=== PATIENT | male | born 1940 | race Caucasian/White ===

== ENCOUNTER 2016-10-06 16:46 | Emergency (ER) | payer MEDICARE ==
[~2016-10-06] VITALS: Wt 99.8 kg
[~2016-10-06 16:46] MED LIST: ASPIRIN CHEWABL81 MG PO; CLONIDINE0.3 MG PO; DOCUSATE SODIU100 M2 PO; HYDROCHLOROTHIA25 M1 PO; LANTUS100 U/ML SC; LISINOPRIL40 MG PO; LUBRICANT EYE D15 ML OP; METFORMIN HCL500 MG PO; METHADONE5 MG PO; NEURONTIN300 MG PO; NORVASC10 MG PO; OMEPRAZOLE MAGN20 MG PO; VICODIN 5/500 505 MG PO; [UNRECOGNIZED DRUG - CODE] IM
[2016-10-06 17:12] LABS: BASO % 0.4 % (0.0-1.0); EOS # 0.2 10*3/uL (0.0-0.4); EOS % 2.3 % (1.0-4.0); HEMATOCRIT 37.9 % (42.0-52.0); HEMOGLOBIN 11.4 g/dl (14.0-18.0); IG # 0.1 10*3/uL (0.0-0.1); LYMPH # 1.9 10*3/uL (1.3-4.4); LYMPH % 20.7 % (27.0-41.0); MEAN CELL VOLUME 78.1 fl (80.0-94.0); MEAN CORPUSCULAR HGB 23.5 pg (27.0-31.0); MEAN CORPUSCULAR HGB CONC 30.1 g/dl (33.0-37.0); MEAN PLATELET VOLUME 12.2 fl (9.6-12.3); MONO # 0.6 10*3/uL (0.1-1.0); MONO % 6.9 % (3.0-9.0); NEUT # 6.2 10*3/uL (2.3-7.9); PLATELET COUNT AUTOMATED 151 10*3/uL (130-400); RED BLOOD COUNT 4.85 10*6/uL (4.50-5.90); RED CELL DISTRI WIDTH 19.9 % (0-14.5)
[2016-10-06 17:19] LABS: PROTHROMBIN TIME 11.1 SECONDS (9.0-12.4)
[2016-10-06 17:27] LABS: ALBUMIN 3.8 gm/dl (3.1-4.5); ALKALINE PHOSPHATASE 141 U/L (45-117); BILIRUBIN, TOTAL 0.4 mg/dl (0.2-1.0); BUN 14 mg/dl (7-24); CARBON DIOXIDE 29 mmol/L (21-32); CHLORIDE 105 mmol/L (98-107); EST GLOM FILT AFRICAN AMERICAN > 60 ml/min; GLUCOSE 152 mg/dL (65-99); POTASSIUM 3.7 mmol/L (3.5-5.1); SGOT/AST 21 IU/L (3-35); SGPT/ALT 21 U/L (12-78); SODIUM 140 mmol/L (136-145)
[2016-10-06 17:29] LABS: TROPONIN I < 0.015 ng/ml (<0.045)
[2016-10-06 18:21] LABS: BILIRUBIN NEGATIVE (NEGATIVE); BLOOD NEGATIVE (NEGATIVE); CLARITY SL CLOUDY (CLEAR); COLOR YELLOW (YELLOW); GLUCOSE NEGATIVE (NEGATIVE); KETONE TRACE (NEGATIVE); LEUKO ESTERASE NEGATIVE (NEGATIVE); NITRITE NEGATIVE (NEGATIVE); PROTEIN TRACE (NEGATIVE); SPECIFIC GRAVITY 1.025 (1.005-1.030); UROBILINOGEN 0.2 E.U./dl (0.2-1.0)
[2016-10-06 18:29] LABS: BACTERIA TRACE; URINE REFLEX COMMENT NO (NO); WBC 0-2 wbc/hpf (0-5)
== END 2016-10-06 19:16 | disposition home or self-care (01) ==
LOC: ED 16:46
PROVIDERS: Nurse Practitioner Family
DX: S70.01XA Contusion of right hip, initial encounter (principal); F17.200 Nicotine dependence, unspecified, uncomplicated; Z90.49 Acquired absence of other specified parts of digestive tract; Z79.4 Long term (current) use of insulin; Z79.82 Long term (current) use of aspirin; W22.8XXA Striking against or struck by other objects, initial encounter; Y93.89 Activity, other specified; Y92.9 Unspecified place or not applicable; Y99.9 Unspecified external cause status

== ENCOUNTER 2017-07-14 22:58 | Emergency (ER) | payer MEDICARE ==
[~2017-07-14] VITALS: Ht 180.3 cm; Wt 102.5 kg
--- NOTE | ~2017-07-14 | EKG ---
[place], [place] ELECTROCARDIOGRAM REPORT NAME: ULISES NOBLE UNIT #: [id number] ROOM: DOCTOR: ANALY DUMONT MD BIRTHDATE: [birth year] DOS: 07/14/2017 TIME: 2304 hours. Normal sinus rhythm at 99 beats per minute. Complete right bundle branch block. Left anterior hemiblock. An abnormal ECG. No previous tracing is available for comparison. ANALY DUMONT MD CM:EKGRPT:ELECTROCARDIOGRAM REPORT [id number] 2148 ANALY DUMONT MD
[~2017-07-14 22:58] MED LIST changes: +LANTUS SOL100 UNIT/1 SQ; -LANTUS100 U/ML SC
[2017-07-14 23:26] LABS: BASO # 0.1 10*3/uL (0.0-0.1); BASO % 0.8 % (0.0-1.0); EOS # 0.3 10*3/uL (0.0-0.4); EOS % 3.1 % (1.0-4.0); HEMATOCRIT 43.1 % (42.0-52.0); HEMOGLOBIN 13.5 g/dl (14.0-18.0); LYMPH # 2.4 10*3/uL (1.3-4.4); LYMPH % 29.1 % (27.0-41.0); MEAN CELL VOLUME 83.9 fl (80.0-94.0); MEAN CORPUSCULAR HGB 26.3 pg (27.0-31.0); MEAN CORPUSCULAR HGB CONC 31.3 g/dl (33.0-37.0); MEAN PLATELET VOLUME 12.4 fl (9.6-12.3); MONO # 0.7 10*3/uL (0.1-1.0); MONO % 7.9 % (3.0-9.0); NEUT # 4.9 10*3/uL (2.3-7.9); NEUT % 58.9 % (47.0-73.0); PLATELET COUNT AUTOMATED 156 10*3/uL (130-400); RED BLOOD COUNT 5.14 10*6/uL (4.50-5.90); RED CELL DISTRI WIDTH 14.1 % (0-14.5); WHITE BLOOD COUNT 8.4 10*3/uL (4.8-10.8)
[2017-07-14 23:37] LABS: ACT PARTIAL THROMBO TIME 24.3 SECONDS (20.8-31.5)
[2017-07-14 23:40] LABS: ALBUMIN 4.4 gm/dl (3.1-4.5); ALKALINE PHOSPHATASE 202 U/L (45-117); BUN 18 mg/dl (7-24); CHLORIDE 101 mmol/L (98-107); CREATININE 1.01 mg/dL (0.70-1.30); POTASSIUM 4.1 mmol/L (3.5-5.1); SGOT/AST 17 IU/L (3-35); SGPT/ALT 25 U/L (12-78); SODIUM 137 mmol/L (136-145); TOTAL PROTEIN 8.9 gm/dL (6.4-8.2)
== END 2017-07-15 01:10 | disposition home or self-care (01) ==
LOC: ED 22:58
PROVIDERS: Student in an Organized Health Care Education/Training Program
DX: I10 Essential (primary) hypertension (principal); F17.200 Nicotine dependence, unspecified, uncomplicated; E11.9 Type 2 diabetes mellitus without complications; Z79.899 Other long term (current) drug therapy; Z79.82 Long term (current) use of aspirin; Z79.4 Long term (current) use of insulin; Z79.84 Long term (current) use of oral hypoglycemic drugs; Z90.49 Acquired absence of other specified parts of digestive tract

== ENCOUNTER → 2017-09-12 | Outpatient (CLI) | payer MEDICARE | END | disposition home or self-care (01) | LOC: ORTHO 00:35 | DX: M25.512 Pain in left shoulder (principal) ==

== ENCOUNTER → 2018-02-25 | Outpatient (CLI) | payer MEDICARE | END | disposition home or self-care (01) | LOC: ORTHO 01:09 | DX: M25.562 Pain in left knee (principal) ==

== ENCOUNTER 2018-08-26 15:37 | Inpatient (IN) | payer OTHER ==
[~2018-08-26] VITALS: Ht 182.8 cm; Wt 108.4 kg
--- NOTE | ~2018-08-26 | EKG ---
[place], [place] ELECTROCARDIOGRAM REPORT NAME: ULISES NOBLE UNIT #: [id number] ROOM: 403 DOCTOR: KAMERON DRAFT REPORT BIRTHDATE: [birth year] [facility] Test Date: 2018-08-26 Test Time: 20:55:23 Pat Name: ULISES NOBLE Department: Room: 403 Gender: M Financial Agent: Kennedi Anand : 1940 Requested By: MADY DURÁN Order Number: [id number] Reading MD: Lio Baldwin Measurements Intervals [place] Rate: 122 P: [place]: QRS: -45 QRSD: 134 T: 4 QT: 353 QTc: 503 Interpretive Statements Atrial fibrillation with RVR RBBB and LAFB Artifact in lead(s) I,II,aVR,aVL,aVF Compared to ECG 08/07/2018 12:51:31 No significant changes Electronically Signed On 08-28-2018 11:02:22 PDT by Lio Baldwin CM:EKGRPT:ELECTROCARDIOGRAM REPORT 54 01 MADY FAJARDO DRAFT REPORT MADY DURÁN DO
--- NOTE | ~2018-08-26 | EKG ---
[place], [place] ELECTROCARDIOGRAM REPORT NAME: ULISES NOBLE UNIT #: [id number] ROOM: 403 DOCTOR: KAMERON DRAFT REPORT BIRTHDATE: [birth year] [facility] Test Date: 2018-08-26 Test Time: 15:42:59 Pat Name: ULISES NOBLE Department: Room: 403 Gender: M Vegetable Farming Supervisor: Kennedi Anand : 1940 Requested By: MADY DURÁN Order Number: [id number] Reading MD: Lio Baldwin Measurements Intervals [place] Rate: 127 P: -11 ME: 178 QRS: -42 QRSD: 128 T: 0 QT: 343 QTc: 499 Interpretive Statements A fib with RVR Multiple premature complexes, vent \T\ supraven RBBB and LAFB Compared to ECG 08/07/2018 12:51:31 Electronically Signed On 08-28-2018 10:54:30 PDT by Lio Baldwin CM:EKGRPT:ELECTROCARDIOGRAM REPORT [id number] 1054 MADY FAJARDO DRAFT REPORT MADY DURÁN DO
--- NOTE | ~2018-08-26 | EKG ---
[place], [place] ELECTROCARDIOGRAM REPORT NAME: ULISES NOBLE UNIT #: [id number] ROOM: 403 DOCTOR: KAMERON DRAFT REPORT BIRTHDATE: [birth year] [facility] Test Date: 2018-08-26 Test Time: 18:22:30 Pat Name: ULISES NOBLE Department: Room: 403 Gender: M Hazardous Waste Remover: Kennedi Anand : 1940 Requested By: MADY DURÁN Order Number: [id number] Reading MD: Lio Baldwin Measurements Intervals [place] Rate: 125 P: GA: QRS: -70 QRSD: 135 T: 4 QT: 356 QTc: 514 Interpretive Statements Atrial fibrillation with RVR RBBB and LAFB Compared to ECG 08/07/2018 12:51:31 No significant changes Electronically Signed On 08-28-2018 10:59:48 PDT by Lio Baldwin CM:EKGRPT:ELECTROCARDIOGRAM REPORT 1822 1059 MADY FAJARDO DRAFT REPORT MADY DURÁN DO
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
[~2018-08-26 15:37] MED LIST changes: +ALOGLIPTIN25 MG PO; +AMLODIPINE BESY10 MG PO; +AQUABASE T; +BASAG SOL SC; +HYDR25T PO; +METFORMIN ER500 MG PO; +OMEPRAZOLE20 M2 PO; +Zestril,Prinivi40 MG PO
--- NOTE | 2018-08-26 15:40 | NUR ---
PATIENT DENIES ANY WOUNDS A&OX4.
[2018-08-26 15:43] VITALS: BP 162/88
--- NOTE | 2018-08-26 15:48 | NUR ---
PATIENT TOOK 162MG OF ASPIRIN THIS MORNING.
[2018-08-26 16:38] LABS: BASO # 0.1 10*3/uL (0.0-0.1); BASO % 0.7 % (0.0-1.0); EOS # 0.2 10*3/uL (0.0-0.4); EOS % 2.3 % (1.0-4.0); HEMOGLOBIN 11.2 g/dl (14.0-18.0); LYMPH % 14.9 % (27.0-41.0); MEAN CELL VOLUME 84.9 fl (80.0-94.0); MEAN CORPUSCULAR HGB 26.4 pg (27.0-31.0); MEAN CORPUSCULAR HGB CONC 31.1 g/dl (33.0-37.0); MEAN PLATELET VOLUME 12.7 fl (9.6-12.3); MONO # 0.5 10*3/uL (0.1-1.0); MONO % 6.9 % (3.0-9.0); NEUT # 5.2 10*3/uL (2.3-7.9); NEUT % 74.9 % (47.0-73.0); PLATELET COUNT AUTOMATED 163 10*3/uL (130-400); RED BLOOD COUNT 4.24 10*6/uL (4.50-5.90); RED CELL DISTRI WIDTH 15.1 % (0-14.5)
[2018-08-26 16:45] VITALS: BP 153/81
[2018-08-26 16:51] LABS: ACT PARTIAL THROMBO TIME 23.3 SECONDS (20.8-31.5)
--- NOTE | 2018-08-26 16:52 | NUR ---
CARDIZEM STARTED AT 10MG/HR PER VERBAL ORDER DR DURÁN.
[2018-08-26 16:53] LABS: LIPASE 64 U/L (73-393)
[2018-08-26 16:54] LABS: ALBUMIN 3.5 gm/dl (3.1-4.5); ALKALINE PHOSPHATASE 162 U/L (45-117); BUN 22 mg/dl (7-24); CHLORIDE 105 mmol/L (98-107); CREATININE 1.28 mg/dL (0.70-1.30); POTASSIUM 4.4 mmol/L (3.5-5.1); SGOT/AST 17 IU/L (3-35); SGPT/ALT 16 U/L (12-78); SODIUM 139 mmol/L (136-145); TOTAL PROTEIN 7.8 gm/dL (6.4-8.2)
[2018-08-26 17:02] LABS: TROPONIN I < 0.015 ng/ml (<0.045)
--- NOTE | 2018-08-26 18:28 | NUR ---
PATIENT TAKEN TO FLOOR AT THIS TIME BY THIS NURSE.
[2018-08-26 18:31] VITALS: BP 140/90
--- NOTE | 2018-08-26 18:45 | NUR ---
A 77, admitted to , under the services of ESSENCE Perez DO with a diagnosis of CHF AND AFIB WITH RVR. Chief complaint is FAST HEART RATE AND HIGH BLOOD PRESSURE. Patient arrived via ambulance from ER. Monitor applied. Initial assessment completed. Vital signs taken and recorded. ESSENCE PEREZ DO notified of admission to the unit. Orders received. See assessment for past medical history, medications and allergies. Patient and/or family oriented to unit. [facility] visitation policy reviewed. Clothing/patient valuable form completed. ELIZABETH CHING
[2018-08-26 18:57] VITALS: BP 153/81
--- NOTE | 2018-08-26 19:23 | NUR ---
DR PETTY NOTIFIED OF ELEVATED LACTIC ACID OF 2.7
--- NOTE | 2018-08-26 19:57 | NUR ---
DR PETTY NOTIFIED MED REC UP TO DATE VIA HOME LIST.
[2018-08-26 20:00] VITALS: BP 118/56; BP 135/69
[2018-08-26 22:00] VITALS: BP 112/58
[2018-08-27] VITALS: BP 105/50
[2018-08-27 02:00] VITALS: BP 114/54
--- NOTE | 2018-08-27 02:14 | NUR ---
DR PETTY NOTIFIED OF PATIENTS REQUEST FOR PAIN MEDICATION. PER DR PETTY OF TO CONTINUE METHADONE SINCE PATIENT RECIEVS'S THIS FOR PAIN.
--- NOTE | 2018-08-27 04:24 | NUR ---
DR PETTY NOTIFIED OF PATIENT CONTINUED COMPLAINTS OF BACK AND LEG PAIN. PATIENT ROCKING BACK AND FORTH IN BED WITH HEAD IN HANDS. DR PETTY ALSO NOTIFIED AT THIS TIME OF PATIENTS CURRENT BP 102/[address] PETTY IF PATIENT BP CONTINUE TO LOWER TITRATE CARDIZEM DRIP DOWN AND RE-EVALUATE.
[2018-08-27 04:34] LABS: BASO # 0.1 10*3/uL (0.0-0.1); BASO % 0.6 % (0.0-1.0); EOS # 0.2 10*3/uL (0.0-0.4); EOS % 2.9 % (1.0-4.0); HEMATOCRIT 32.9 % (42.0-52.0); HEMOGLOBIN 10.2 g/dl (14.0-18.0); LYMPH # 1.2 10*3/uL (1.3-4.4); LYMPH % 15.3 % (27.0-41.0); MEAN CELL VOLUME 85.2 fl (80.0-94.0); MEAN CORPUSCULAR HGB 26.4 pg (27.0-31.0); MONO # 0.8 10*3/uL (0.1-1.0); MONO % 9.6 % (3.0-9.0); NEUT # 5.7 10*3/uL (2.3-7.9); NEUT % 71.4 % (47.0-73.0); PLATELET COUNT AUTOMATED 177 10*3/uL (130-400); RED BLOOD COUNT 3.86 10*6/uL (4.50-5.90); RED CELL DISTRI WIDTH 15.2 % (0-14.5)
[2018-08-27 04:45] LABS: INTERNATIONAL NORM RATIO 1.1 (2.0-3.5)
[2018-08-27 04:54] LABS: ALBUMIN 3.2 gm/dl (3.1-4.5); ALKALINE PHOSPHATASE 146 U/L (45-117); BUN 21 mg/dl (7-24); CHLORIDE 108 mmol/L (98-107); CHOLESTEROL 92 mg/dL (<200); CREATININE 1.21 mg/dL (0.70-1.30); HDL CHOLESTEROL 22 mg/dl (40-60); LDL CHOLESTEROL 50 mg/dL (9-159); PHOSPHOROUS 3.3 mg/dL (2.5-4.9); SGOT/AST 13 IU/L (3-35); SGPT/ALT 13 U/L (12-78); SODIUM 142 mmol/L (136-145); TOTAL PROTEIN 7.3 gm/dL (6.4-8.2); TRIGLYCERIDES 98 mg/dl (<150); VLDL CHOLESTEROL 20 mg/dL (6-40)
[2018-08-27 04:55] LABS: FREE T4 1.64 ng/dl (0.76-1.46)
--- NOTE | 2018-08-27 05:26 | NUR ---
DR PETTY NOTIFIED PATIENTS WANTS TO LEAVE AMA IF HE DOESNT GET SOMETHING TO HELP WITH THE PAIN.
[2018-08-27 06:00] VITALS: BP 110/60
[2018-08-27 06:35] LABS: VITAMIN D, 25-HYDROXY 40.2 ng/mL (30-100)
--- NOTE | 2018-08-27 06:41 | NUR ---
DR CARVAJAL ANSWERING SERVICE NOTIFIED OF CONSULT.
[2018-08-27 07:53] VITALS: BP 120/52
--- NOTE | 2018-08-27 09:00 | NUR ---
Rate Examiner in to talk to patient. Patient states lives at home with girlfriend. There are few steps in the home. Physician: [facility]ora Pharmacy: in Home health services: none Patient's level of ADLs: INDEPENDENT Patient has working utilities: all working DME: rollator walker Follow-up physician's appointment after d/c: will be made by hospitalist nurse director upon discharge Does patient want to access PORTAL?: no Discharge plan discussed with patient, girlfriend present, patient lives at home with girlfriend, he states he uses a rollator walker for ambualtion, no home oxygen, patient states he will be going home when able. discussed with them [facility] and they declined any services at this time. SELAM POTTS
--- NOTE | 2018-08-27 11:02 | NUR ---
NOTIFIED DR MAYS THAT PT STATES THAT HE NEEDS SOMETHING FOR ANXIETY. PT ALSO STATES THAT PT IS GOING TO LEAVE TODAY NO MATTER WHAT. NEW ORDERS RECEIVED. WILL NOTIFY PT AND .
--- NOTE | 2018-08-27 11:18 | NUR ---
PT GIVEN 0.5 MG ATIVAN PO AT THIS TIME FOR AGITATION/ANXIETY. WILL MONITOR FOR EFFECTIVENESS. CALL LIGHT IN REACH.
--- NOTE | 2018-08-27 12:18 | NUR ---
ATIVAN SOMEWHAT EFFECTIVE, PT STILL APPEARS AGITATED. 1:1 AND REDIRECTION GIVEN AT THIS TIME. WILL CONTINUE TO MONITOR. FAMILY AT BEDSIDE. CALL LIGHT IN REACH.
[2018-08-27 12:49] VITALS: BP 134/70
--- NOTE | 2018-08-27 13:03 | NUR ---
case management received a call from Arlen at [facility]. Arlen was notified that patient was in this facility. she requested patient's information be faxed. faxed at this time
--- NOTE | 2018-08-27 13:10 | NUR ---
SPEECH PATHOLOGY Bedside swallow eval. completed as per orders to r/o aspiration. Patient is diagnosed with pneumonia, as well as acute heart failure, a-fib with RVR, DM, HTN and falls. He is currently ordered a regular diet and thin liquid. Patient was agitated throughout the evaluation but able to cooperate to complete the assessment. He denied any swallowing difficulty but his girlfriend reported that at times he complains that it is difficult to swallow. He was observed with his lunch, which consisted of a variety of food items, as well as thin liquid. Patient displayed no overt s/s aspiration during the meal. The entire meal was consumed. Recommend he remain on regular diet. No follow up is warranted at this time. Results and recommendations were shared with patient and his nurse and they verbalized understanding. Refer to report in [place] for further information. Thank you for this referral. MARISSA MURDOCK [facility]
[2018-08-27] MEDS ORDERED: DOXYCYCLINE100 M3 PO (14:01)
[2018-08-27] MEDS ORDERED: LASIX20 MG PO (14:01)
[2018-08-27] MEDS ORDERED: DILTIAZEM HCL90 M1 PO (14:01)
[2018-08-27] MEDS ORDERED: ELIQUIS5 M1 PO (14:01)
[2018-08-27] MEDS ORDERED: K-TAB20 MEQ PO (14:01)
--- NOTE | 2018-08-27 15:19 | NUR ---
patient was tested for use of home oxygen. patient has history of low spo2 during this stay at hospital, and atrial fibirlation. vitals at rest (room air) heart rate:101 resp. rate 18 blood prtessure:126/62 spo2:90% during ambulation his spo2 dropped immediately to 85% and his heart rate jumps to 140 bpm, continuing with 2 liter nasal cannula he was able to come up 89-90%. 3liters he yonathan to 91-92% , and 4 liters he would get 92% and would hold at that. contacting [facility] for oxygen order.
[2018-08-27 16:00] VITALS: BP 164/74
--- NOTE | 2018-08-27 16:24 | NUR ---
PT CONTINUES TO APPEAR AGITATED AND ANXIOUS ABOUT LEAVING AND GOING HOME. PT ADVISED THAT HE NEEDS TO WAIT ABOUT AN HOUR FOR HOME OXYGEN COMPANY TO ARRIVE WITH OXYGEN TANK. PT GIVEN AN ADDITIONAL 0.5 MG ATIVAN PO AT THIS TIME. WILL MONITOR FOR EFFECTIVENESS. FAMILY AT BEDSIDE, CALL LIGHT IN REACH.
--- NOTE | 2018-08-27 17:00 | NUR ---
Patient stated he was anxious. Increased respirations and heart rate were noted. Medicated per order. Patient is now sitting at the side of the bed talking to his daughter. Repirations are easy and non labored at this time.
--- NOTE | 2018-08-27 17:30 | NUR ---
PT FOUND WALKING DOWN HALLWAY, WITHOUT OXYGEN AND STATES THAT HE IS NOW LEAVING FACILITY. HOME OXYGEN COMPANY ELECTRIC TRANSFER OPERATOR IS BEHIND PT, ENCOURAGING PT TO WEAR OXYGEN NASAL CANNULA. PT REFUSING AND STATES THAT HE JUST NEEDS TO LEAVE. PT AGREES TO SIT DOWN IN LOBBY AND DOES PUT NASAL CANNULA ON, DAUGHTER ARRIVES ONTO FLOOR AND WALKS TO NURSE STATION WITH THIS NURSE TO SIGN DISHCARGE PAPERWORK AND OBTAINED PRINTED SCRIPTS. AFTER ALL APPROPRIATE PAPERWORK IS SIGNED, PT IS ASSISTED OFF OF FLOOR VIA W/C WITH DAUGHTER.
--- NOTE | 2018-08-27 17:33 | NUR ---
Discharge instructions reviewed with patient/family. Patient receptive and verbalizes understanding. Follow-up care arranged. Written instructions given to patient/family. ELIZABETH CHING
[2018-08-30] MEDS ORDERED: NORVASC10 MG PO (13:50)
[2018-09-24] MEDS ORDERED: CLONIDINE0.3 MG PO (21:16)
[2018-09-24] MEDS ORDERED: GLUCOPHAGE1000 MG PO (21:20)
[2018-09-24] MEDS ORDERED: AMPICILLIN500 MG PO (21:26)
[2018-09-24] MEDS ORDERED: XARE20MG PO (21:55)
[2018-10-14] MEDS ORDERED: METOPROLOL TART50 M1 PO (11:43)
== END 2018-08-27 17:33 | disposition home or self-care (01) | DRG 871 ==
LOC: ED 15:37 → EDHOLD 17:43 → 4E 17:43
PROVIDERS: Emergency Medicine; Student in an Organized Health Care Education/Training Program; ADMIT Internal Medicine
DX: A41.9 Sepsis, unspecified organism (principal); J96.01 Acute respiratory failure with hypoxia; J18.1 Lobar pneumonia, unspecified organism; I50.33 Acute on chronic diastolic (congestive) heart failure; E44.1 Mild protein-calorie malnutrition; I13.0 Hypertensive heart and chronic kidney disease with heart failure and stage 1 through stage 4 chronic kidney disease, or unspecified chronic kidney disease; R65.20 Severe sepsis without septic shock; E83.41 Hypermagnesemia; I48.0 Paroxysmal atrial fibrillation; E11.65 Type 2 diabetes mellitus with hyperglycemia; F17.210 Nicotine dependence, cigarettes, uncomplicated; E66.8 Other obesity; I45.10 Unspecified right bundle-branch block; E11.40 Type 2 diabetes mellitus with diabetic neuropathy, unspecified; N18.3 Chronic kidney disease, stage 3 (moderate); E11.22 Type 2 diabetes mellitus with diabetic chronic kidney disease; D53.9 Nutritional anemia, unspecified; Z88.4 Allergy status to anesthetic agent; Z90.49 Acquired absence of other specified parts of digestive tract; Z80.0 Family history of malignant neoplasm of digestive organs; Z82.49 Family history of ischemic heart disease and other diseases of the circulatory system; Z79.82 Long term (current) use of aspirin; Z79.899 Other long term (current) drug therapy; Z79.4 Long term (current) use of insulin; Z68.32 Body mass index [BMI] 32.0-32.9, adult; Z71.6 Tobacco abuse counseling

== ENCOUNTER 2018-08-29 07:09 | Emergency (ER) | payer OTHER ==
[~2018-08-29] VITALS: Ht 182.8 cm; Wt 102.1 kg
--- NOTE | ~2018-08-29 | EKG ---
[place], [place] ELECTROCARDIOGRAM REPORT NAME: ULISES NOBLE UNIT #: [id number] ROOM: DOCTOR: EPIPHANY DRAFT REPORT BIRTHDATE: [birth year] [facility] Test Date: 2018-08-29 Test Time: 07:13:38 Pat Name: ULISES NOBLE Department: Room: Gender: Spare Hand: : 1940 Requested By: JUANITO PASTRANA Order Number: [id number] Reading MD: Martin Contreras MD Measurements Intervals [place] Rate: 159 P: GA: QRS: -66 QRSD: 127 T: -1 QT: 307 QTc: 500 Interpretive Statements Atrial fibrillation Multiple ventricular premature complexes RBBB and LAFB Compared to ECG 08/26/2018 20:55:23 Ventricular premature complex(es) now present Atrial fibrillation no longer present Electronically Signed On 08-31-2018 10:06:32 PDT by Martin Contreras MD CM:EKGRPT:ELECTROCARDIOGRAM REPORT 0713 1006 JUANITO MELO DRAFT REPORT JUANITO PASTRANA M.D.
--- NOTE | ~2018-08-29 | EKG ---
[place], [place] ELECTROCARDIOGRAM REPORT NAME: ULISES NOBLE UNIT #: [id number] ROOM: DOCTOR: EPIPHANY DRAFT REPORT BIRTHDATE: [birth year] [facility] Test Date: 2018-08-29 Test Time: 10:22:11 Pat Name: ULISES NOBLE Department: Room: Gender: Special Event Assistant: Kennedi Anand : 1940 Requested By: JUANITO PASTRANA Order Number: [id number] Reading MD: Martin Contreras MD Measurements Intervals [place] Rate: 115 P: [place]: QRS: -40 QRSD: 135 T: -21 QT: 352 QTc: 487 Interpretive Statements Atrial fibrillation Ventricular premature complex RBBB and LAFB Compared to ECG 08/26/2018 20:55:23 Ventricular premature complex(es) now present Electronically Signed On 08-31-2018 10:06:39 PDT by Martin Contreras MD CM:EKGRPT:ELECTROCARDIOGRAM REPORT 1022 1006 JUANITO MELO DRAFT REPORT JUANITO PASTRAAN M.D.
--- NOTE | ~2018-08-29 | EKG ---
[place], [place] ELECTROCARDIOGRAM REPORT NAME: ULISES NOBLE UNIT #: [id number] ROOM: DOCTOR: [facility] DRAFT REPORT BIRTHDATE: [birth year] [facility] Test Date: 2018-08-29 Test Time: 07:13:38 Pat Name: ULISES NOBLE Department: Patient ID: ELOH- Room: Gender: M Car Supplier: : 1940 Requested By: JUANITO PASTRANA Order Number: [id number] Reading MD: Measurements Intervals [place] Rate: 159 P: [place]: QRS: -66 QRSD: 127 T: -1 QT: 307 QTc: 500 Interpretive Statements Wide-QRS tachycardia Multiple ventricular premature complexes RBBB and LAFB Compared to ECG 08/21/2018 16:54:24 Ventricular premature complex(es) now present Left anterior fascicular block now present Right bundle-branch block now present Sinus tachycardia no longer present ST (T wave) deviation no longer present CM:EKGRPT:ELECTROCARDIOGRAM REPORT 0713 0417 JUANITO MELO DRAFT REPORT JUANITO PASTRANA M.D.
[~2018-08-29 07:09] MED LIST changes: +DILTIAZEM HCL90 M1 PO; +DOXYCYCLINE100 M3 PO; +ELIQUIS5 M1 PO; +K-TAB20 MEQ PO; +LASIX20 MG PO
[2018-08-29 07:33] LABS: BASO # 0.1 10*3/uL (0.0-0.1); BASO % 0.6 % (0.0-1.0); EOS # 0.1 10*3/uL (0.0-0.4); EOS % 1.2 % (1.0-4.0); HEMATOCRIT 34.7 % (42.0-52.0); HEMOGLOBIN 10.7 g/dl (14.0-18.0); LYMPH # 1.3 10*3/uL (1.3-4.4); LYMPH % 14.8 % (27.0-41.0); MEAN CELL VOLUME 84.8 fl (80.0-94.0); MEAN CORPUSCULAR HGB 26.2 pg (27.0-31.0); MEAN CORPUSCULAR HGB CONC 30.8 g/dl (33.0-37.0); MEAN PLATELET VOLUME 11.6 fl (9.6-12.3); MONO # 0.8 10*3/uL (0.1-1.0); MONO % 8.5 % (3.0-9.0); NEUT # 6.6 10*3/uL (2.3-7.9); NEUT % 74.6 % (47.0-73.0); PLATELET COUNT AUTOMATED 184 10*3/uL (130-400); RED BLOOD COUNT 4.09 10*6/uL (4.50-5.90); RED CELL DISTRI WIDTH 15.2 % (0-14.5); WHITE BLOOD COUNT 8.9 10*3/uL (4.8-10.8)
[2018-08-29 07:42] LABS: ACT PARTIAL THROMBO TIME 24.7 SECONDS (20.8-31.5); INTERNATIONAL NORM RATIO 1.1 (2.0-3.5)
[2018-08-29 07:52] LABS: ALBUMIN 3.7 gm/dl (3.1-4.5); ALKALINE PHOSPHATASE 157 U/L (45-117); BUN 24 mg/dl (7-24); CHLORIDE 107 mmol/L (98-107); CREATININE 1.44 mg/dL (0.70-1.30); POTASSIUM 4.3 mmol/L (3.5-5.1); SGOT/AST 13 IU/L (3-35); SGPT/ALT 15 U/L (12-78); SODIUM 141 mmol/L (136-145); TOTAL PROTEIN 8.2 gm/dL (6.4-8.2)
[2018-08-29 07:53] LABS: TROPONIN I < 0.015 ng/ml (<0.045)
[2018-08-30] MEDS ORDERED: NORVASC10 MG PO (13:50)
[2018-09-24] MEDS ORDERED: CLONIDINE0.3 MG PO (21:16)
[2018-09-24] MEDS ORDERED: GLUCOPHAGE1000 MG PO (21:20)
[2018-09-24] MEDS ORDERED: AMPICILLIN500 MG PO (21:26)
[2018-09-24] MEDS ORDERED: XARE20MG PO (21:55)
[2018-10-14] MEDS ORDERED: METOPROLOL TART50 M1 PO (11:43)
== END 2018-08-29 11:15 | disposition left against medical advice (07) ==
LOC: ED
PROVIDERS: Emergency Medicine
DX: I48.2 Chronic atrial fibrillation (principal); E66.9 Obesity, unspecified; E11.22 Type 2 diabetes mellitus with diabetic chronic kidney disease; I12.9 Hypertensive chronic kidney disease with stage 1 through stage 4 chronic kidney disease, or unspecified chronic kidney disease; N18.3 Chronic kidney disease, stage 3 (moderate); E11.40 Type 2 diabetes mellitus with diabetic neuropathy, unspecified; F17.210 Nicotine dependence, cigarettes, uncomplicated; Z88.4 Allergy status to anesthetic agent; Z79.899 Other long term (current) drug therapy; Z79.2 Long term (current) use of antibiotics; Z79.4 Long term (current) use of insulin; Z79.82 Long term (current) use of aspirin; Z90.49 Acquired absence of other specified parts of digestive tract; Z68.30 Body mass index [BMI] 30.0-30.9, adult

== ENCOUNTER 2018-09-16 06:13 | Emergency (ER) | payer MEDICARE ==
[~2018-09-16] VITALS: Ht 177.8 cm; Wt 90.7 kg
--- NOTE | ~2018-09-16 | EKG ---
[place], [place] ELECTROCARDIOGRAM REPORT NAME: ULISES NOBLE UNIT #: [id number] ROOM: DOCTOR: EPIPHANY DRAFT REPORT BIRTHDATE: [birth year] [facility] Test Date: 2018-09-16 Test Time: 06:19:49 Pat Name: ULISES NOBLE Department: Room: Gender: Mis Specialist: Gin Han : 1940 Requested By: JV MCCLAIN Order Number: [id number] Reading MD: Martin Contreras MD Measurements Intervals [place] Rate: 111 P: [place]: QRS: -9 QRSD: 138 T: 25 QT: 378 QTc: 514 Interpretive Statements Atrial fibrillation Right bundle branch block Compared to ECG 08/30/2018 13:03:15 No significant changes Electronically Signed On 09-18-2018 9:29:17 PDT by Martin Contreras MD CM:EKGRPT:ELECTROCARDIOGRAM REPORT 0619 0929 JV FAJARDO DRAFT REPORT JV MCCLAIN DO
[2018-09-16 06:56] LABS: BASO # 0.1 10*3/uL (0.0-0.1); BASO % 0.7 % (0.0-1.0); EOS # 0.3 10*3/uL (0.0-0.4); EOS % 4.4 % (1.0-4.0); HEMATOCRIT 33.4 % (42.0-52.0); HEMOGLOBIN 10.4 g/dl (14.0-18.0); LYMPH % 13.9 % (27.0-41.0); MEAN CELL VOLUME 83.1 fl (80.0-94.0); MEAN CORPUSCULAR HGB 25.9 pg (27.0-31.0); MEAN CORPUSCULAR HGB CONC 31.1 g/dl (33.0-37.0); MEAN PLATELET VOLUME 12.2 fl (9.6-12.3); MONO # 0.7 10*3/uL (0.1-1.0); MONO % 9.4 % (3.0-9.0); PLATELET COUNT AUTOMATED 214 10*3/uL (130-400); RED BLOOD COUNT 4.02 10*6/uL (4.50-5.90); RED CELL DISTRI WIDTH 15.3 % (0-14.5)
[2018-09-16 07:09] LABS: ACT PARTIAL THROMBO TIME 24.7 SECONDS (20.8-31.5)
[2018-09-16 07:13] LABS: ALKALINE PHOSPHATASE 188 U/L (45-117); BUN 43 mg/dl (7-24); CHLORIDE 104 mmol/L (98-107); CREATININE 1.63 mg/dL (0.70-1.30); POTASSIUM 4.9 mmol/L (3.5-5.1); SGOT/AST 14 IU/L (3-35); SGPT/ALT 16 U/L (12-78); SODIUM 140 mmol/L (136-145); TOTAL PROTEIN 7.1 gm/dL (6.4-8.2)
[2018-09-16 07:15] LABS: TROPONIN I < 0.015 ng/ml (<0.045)
[2018-09-16 08:32] LABS: BILIRUBIN NEGATIVE (NEGATIVE); BLOOD TRACE-INTACT (NEGATIVE); CLARITY SL CLOUDY (CLEAR); COLOR YELLOW (YELLOW); GLUCOSE NEGATIVE (NEGATIVE); KETONE NEGATIVE (NEGATIVE); LEUKO ESTERASE 2+ (NEGATIVE); NITRITE NEGATIVE (NEGATIVE); UROBILINOGEN 0.2 E.U./dl (0.2-1.0)
[2018-09-16 09:02] LABS: WBC 51-100 wbc/hpf (0-5)
[2018-09-16 09:03] LABS: BACTERIA 2+; RBC 16-20 rbc/hpf (0-2)
[2018-09-16 09:04] LABS: YEAST 2+
[2018-09-16] MEDS ORDERED: PYRIDIUM200 M1 PO (10:19)
[2018-09-16] MEDS ORDERED: LEVOFLOXACIN500 MG PO (10:19)
[2018-09-24] MEDS ORDERED: CLONIDINE0.3 MG PO (21:16)
[2018-09-24] MEDS ORDERED: GLUCOPHAGE1000 MG PO (21:20)
[2018-09-24] MEDS ORDERED: AMPICILLIN500 MG PO (21:26)
[2018-09-24] MEDS ORDERED: XARE20MG PO (21:55)
[2018-10-14] MEDS ORDERED: METOPROLOL TART50 M1 PO (11:43)
== END 2018-09-16 10:35 | disposition home or self-care (01) ==
LOC: ED 06:13
PROVIDERS: Emergency Medicine; Student in an Organized Health Care Education/Training Program
DX: N39.0 Urinary tract infection, site not specified (principal); J18.9 Pneumonia, unspecified organism; I48.91 Unspecified atrial fibrillation; E66.9 Obesity, unspecified; E11.22 Type 2 diabetes mellitus with diabetic chronic kidney disease; I12.9 Hypertensive chronic kidney disease with stage 1 through stage 4 chronic kidney disease, or unspecified chronic kidney disease; N18.3 Chronic kidney disease, stage 3 (moderate); E11.40 Type 2 diabetes mellitus with diabetic neuropathy, unspecified; F17.210 Nicotine dependence, cigarettes, uncomplicated; Z88.4 Allergy status to anesthetic agent; Z79.899 Other long term (current) drug therapy; Z79.82 Long term (current) use of aspirin; Z79.4 Long term (current) use of insulin; Z68.30 Body mass index [BMI] 30.0-30.9, adult; Z90.49 Acquired absence of other specified parts of digestive tract

== ENCOUNTER 2018-10-02 10:09 | Inpatient (IN) | payer OTHER ==
[~2018-10-02] VITALS: Ht 182.8 cm; Wt 103.4 kg
--- NOTE | ~2018-10-02 | CON ---
[place], [place] REPORT OF CONSULTATION NAME: ULISES NOBLE UNIT #: [id number] ROOM: 512 DOCTOR: ANDREW BARTHOLOMEW MD,CLAUDE BIRTHDATE: [birth year] DOS: Consultation was asked for this patient. The patient was not seen and discharged. CLAUDE MORALES MD CM:CONSTR:REPORT OF CONSULTATION 1145 10/03/18 2347 interface
[~2018-10-02 10:09] MED LIST changes: +AMPICILLIN500 MG PO; +GLUCOPHAGE1000 MG PO; +LEVOFLOXACIN500 MG PO; +PYRIDIUM200 M1 PO; +XARE20MG PO
[2018-10-02 10:19] VITALS: BP 93/36
[2018-10-02 10:50] LABS: BASO # 0.1 10*3/uL (0.0-0.1); BASO % 0.7 % (0.0-1.0); EOS # 0.8 10*3/uL (0.0-0.4); EOS % 6.9 % (1.0-4.0); HEMATOCRIT 28.8 % (42.0-52.0); HEMOGLOBIN 8.6 g/dl (14.0-18.0); LYMPH # 1.7 10*3/uL (1.3-4.4); LYMPH % 14.2 % (27.0-41.0); MEAN CELL VOLUME 85.2 fl (80.0-94.0); MEAN CORPUSCULAR HGB 25.4 pg (27.0-31.0); MEAN CORPUSCULAR HGB CONC 29.9 g/dl (33.0-37.0); MEAN PLATELET VOLUME 9.9 fl (9.6-12.3); MONO % 8.4 % (3.0-9.0); NEUT # 8.3 10*3/uL (2.3-7.9); NEUT % 69.2 % (47.0-73.0); PLATELET COUNT AUTOMATED 215 10*3/uL (130-400); RED BLOOD COUNT 3.38 10*6/uL (4.50-5.90); RED CELL DISTRI WIDTH 16.1 % (0-14.5)
[2018-10-02 10:58] VITALS: BP 94/72
[2018-10-02 11:07] LABS: ALBUMIN 3.1 gm/dl (3.1-4.5); CREATININE 1.92 mg/dL (0.70-1.30); POTASSIUM 4.4 mmol/L (3.5-5.1); TOTAL PROTEIN 7.4 gm/dL (6.4-8.2)
[2018-10-02 11:09] LABS: BILIRUBIN NEGATIVE (NEGATIVE); BLOOD NEGATIVE (NEGATIVE); CLARITY CLEAR (CLEAR); COLOR YELLOW (YELLOW); GLUCOSE NEGATIVE (NEGATIVE); KETONE NEGATIVE (NEGATIVE); LEUKO ESTERASE NEGATIVE (NEGATIVE); NITRITE NEGATIVE (NEGATIVE); PH 5.5 (5.0-9.0); SPECIFIC GRAVITY 1.015 (1.005-1.030); UROBILINOGEN 0.2 E.U./dl (0.2-1.0)
[2018-10-02 11:51] LABS: BACTERIA 1+; YEAST TRACE
[2018-10-02 13:00] VITALS: BP 107/58
--- NOTE | 2018-10-02 13:06 | NUR ---
NOTIFIED NURSE OF PATIENT COMING TO FLOOR.
--- NOTE | 2018-10-02 13:15 | NUR ---
A 78, admitted to 5E, under the services of MADY Lagos DO with a diagnosis of ARF, PNEUMONIA. Chief complaint is LOWER BACK PAIN. Patient arrived via bed from ER. Monitor applied. Initial assessment completed. Vital signs taken and recorded. MADY LAGOS DO notified of admission to the unit. Orders received. See assessment for past medical history, medications and allergies. Patient and/or family oriented to unit. [address] visitation policy reviewed. Clothing/patient valuable form completed. FLU AND PNEUMONIA CURRENT ANDER ALANIZ
[2018-10-02 13:30] VITALS: BP 109/46
--- NOTE | 2018-10-02 15:45 | NUR ---
SAMIR TO EUGENIA AT [facility] REGARDING NEW PT CONSULT FOR DR STOVER. WAITING SAWYER HELPER BACK
--- NOTE | 2018-10-02 15:52 | NUR ---
SPOKE TO DR MORALES REGARDING NEW PT CONSULT. HE WILL SEE PT TOMORROW
[2018-10-02 16:00] VITALS: BP 113/50
--- NOTE | 2018-10-02 16:15 | NUR ---
SPOKE TO DR STOVER REGARDING NEW PT CONSULT. ORDER TO HOLD LISINOPRIL AND HYDROCHLORITHIAZIDE. ORDER TO RUN A SECOND BAG OF NORMAL SALINE AT 150 ML/HR. HE WILL SEE PT TOMORROW
[2018-10-02 20:00] VITALS: BP 101/50
--- NOTE | 2018-10-02 20:11 | NUR ---
PTS HOME MEDICATIONS VERIFIED VIA FAX FROM [facility]. SPOKE TO DR CHAMBERS AND INFORMED HER THAT XARELTO AND POTASSIUM ARE NOT LISTED MEDICATIONS. I SPOKE TO PT AND HE STATED HE "IS SURE HE TAKES A BLOOD THINNER BUT THINKS THE DR STOPPED HIS POTASSIUM."
--- NOTE | 2018-10-02 21:30 | NUR ---
PT. C/O ABOUT BEING IN A SMALL ROOM & WANT TO LEAVE AMA.
--- NOTE | 2018-10-02 21:45 | NUR ---
DR. CHAMBERS ON FLOOR TO TALK TO PATIENT. PT. STILL WANTS TO LEAVE AMA. NSG FORCE DISPATCHER AWARE.
--- NOTE | 2018-10-02 21:50 | NUR ---
HEP LOCK REMOVED; STERILE DRESSING APPLIED.
--- NOTE | 2018-10-02 22:10 | NUR ---
PT. TAKEN DOWN VIA WHEELCHAIR ACCOMPANIED BY PA.
[2018-10-14] MEDS ORDERED: METOPROLOL TART50 M1 PO (11:43)
== END 2018-10-02 22:10 | disposition left against medical advice (07) | DRG 871 ==
LOC: ED 10:09 → EDHOLD 12:23 → 5E 12:57
PROVIDERS: Emergency Medicine; ADMIT Emergency Medicine
DX: A41.9 Sepsis, unspecified organism (principal); J18.1 Lobar pneumonia, unspecified organism; J96.01 Acute respiratory failure with hypoxia; N17.0 Acute kidney failure with tubular necrosis; I13.0 Hypertensive heart and chronic kidney disease with heart failure and stage 1 through stage 4 chronic kidney disease, or unspecified chronic kidney disease; I50.32 Chronic diastolic (congestive) heart failure; L03.119 Cellulitis of unspecified part of limb; E44.0 Moderate protein-calorie malnutrition; E11.42 Type 2 diabetes mellitus with diabetic polyneuropathy; E11.65 Type 2 diabetes mellitus with hyperglycemia; Z53.21 Procedure and treatment not carried out due to patient leaving prior to being seen by health care provider; F43.10 Post-traumatic stress disorder, unspecified; R65.20 Severe sepsis without septic shock; K21.9 Gastro-esophageal reflux disease without esophagitis; F41.9 Anxiety disorder, unspecified; D64.9 Anemia, unspecified; E78.5 Hyperlipidemia, unspecified; I48.91 Unspecified atrial fibrillation; G89.4 Chronic pain syndrome; N18.3 Chronic kidney disease, stage 3 (moderate); E11.22 Type 2 diabetes mellitus with diabetic chronic kidney disease; F17.210 Nicotine dependence, cigarettes, uncomplicated; E66.9 Obesity, unspecified; Z88.8 Allergy status to other drugs, medicaments and biological substances; Z79.82 Long term (current) use of aspirin; Z79.4 Long term (current) use of insulin; Z79.84 Long term (current) use of oral hypoglycemic drugs; Z90.49 Acquired absence of other specified parts of digestive tract; Z80.0 Family history of malignant neoplasm of digestive organs; Z82.49 Family history of ischemic heart disease and other diseases of the circulatory system; Z68.30 Body mass index [BMI] 30.0-30.9, adult